=== PATIENT | male | born 1995 | race African-American/Black ===

== ENCOUNTER 2019-09-04 13:47 | Emergency (ER) | payer MEDICAID, OTHER ==
[~2019-09-04] VITALS: Ht 175.3 cm; Wt 108.9 kg
[~2019-09-04 13:47] MED LIST: FELBATOL600 MG PO
[2019-09-04] MEDS ORDERED: ONFI20 MG PO (14:00)
--- NOTE | 2019-09-04 14:20 | NUR ---
ED Nurse Note:pt. was BIBA with seizures, pt. is A/Ox3 , blood and urine sent to labs
[2019-09-04 14:22] LABS: EOSINOPHILS % (AUTO) 1.5 % (0.0-3.0); HEMATOCRIT 44.2 % (42.0-52.0); HEMOGLOBIN 14.5 G/DL (14.2-18.0); LYMPHOCYTES % (AUTO) 19.4 % (20.0-45.0); MEAN CORPUSCULAR VOLUME 90 FL (80-99); MONOCYTES % (AUTO) 9.7 % (1.0-10.0); NEUTROPHILS % (AUTO) 67.4 % (45.0-75.0); PLATELET COUNT 260 K/UL (150-450); RED BLOOD COUNT 4.92 M/UL (4.70-6.10); RED CELL DISTRIBUTION WIDTH 13.2 % (11.6-14.8); WHITE BLOOD COUNT 5.5 K/UL (4.8-10.8)
[2019-09-04 14:32] VITALS: BP 140/80
[2019-09-04 14:35] LABS: ANION GAP 15 mmol/L (5-15); BLOOD UREA NITROGEN 9 mg/dL (7-18); CALCIUM 9.1 MG/DL (8.5-10.1); CARBON DIOXIDE 23 MMOL/L (21-32); CHLORIDE 107 MMOL/L (98-107); CREATININE 1.1 MG/DL (0.55-1.30); POTASSIUM 4.7 MMOL/L (3.5-5.1); SODIUM 145 MMOL/L (136-145)
--- NOTE | 2019-09-04 14:35 | NUR ---
ED Nurse Note:pt. had CT scan done, IV meds and fluids given
[2019-09-04 14:40] LABS: ALANINE AMINOTRANSFERASE 60 U/L (12-78); ALKALINE PHOSPHATASE 81 U/L (46-116); ASPARTATE AMINO TRANSFERASE 39 U/L (15-37); BILIRUBIN,TOTAL 0.3 MG/DL (0.2-1.0)
--- NOTE | 2019-09-04 14:48 | Diagnostic Imaging Report ---
Indication: Headache Technique: Contiguous 5 mm thick transaxial imaging of the head obtained in a Siemens Sensation [address] scanner. Soft tissue and bone windows generated. Automatic Exposure Control was utilized. Total Dose length Product (DLP): 1018.8mGycm CT Dose Index Volume (CTDIvol): 53.4 mGy Comparison: none Findings: The size and configuration of the cortical sulci, basal cisterns, and ventricles are within normal limits for age. There is no mass effect, midline shift, or edema identified. There is no evidence of acute hemorrhage or abnormal intra-axial or extra-axial fluid collections. The bones and soft tissues are unremarkable. Impression: No mass effect, edema or acute bleed. The CT scanner at [facility] is accredited by the [employer] and the scans are performed using dose optimization techniques as appropriate to a performed exam including Automatic Exposure control.
--- NOTE | 2019-09-04 14:49 | Diagnostic Imaging Report ---
Indication: Chest pain Comparison: 08/22/2006 A single view chest radiograph was obtained. Findings: Cardiomediastinal appearance is within normal limits for age and accounting for low lung volumes. The lungs are clear. Pulmonary vascularity is appropriate. The diaphragmatic contour is smooth and costophrenic angles are sharp. No pleural effusions are identified. The bones are unremarkable. Impression: No acute findings
[2019-09-04] MEDS ORDERED: CYPROHEPTADINE H4 MG PO (15:03)
[2019-09-04 16:24] VITALS: BP 116/46
--- NOTE | 2019-09-04 16:36 | Emergency Room Report ---
History of Present Illness General Chief Complaint: Seizure Source: EMS Present Illness HPI 23-year-old male with history of tonic-clonic seizures and epilepsy brought in by paramedics after having a seizure episode while at work center earlier today. Patient was dancing in February and had a seizure activity. Mom arrives later who happens to be with patient. Mom reports that since patient had the flu shot 1 week ago has been having fever free seizure episodes. Patient has also lost continence during 1 of them. Patient has a neurologist who sees him regularly, and 2 different seizure medication. Patient recently started a new sleeping pill. Next appointment with neurologist is in 1 week from now. Also has an EEG appointment for first week of September. Denies any head injury. Appears to be stable with stable vital signs. Denies any drug use and alcohol intake. Denies chest pain, shortness of breath, palpitation, and no neurological or vascular deficits noted. Allergies: Coded Allergies: No Known Allergies (Unverified , 09/14/12) Patient History Past Medical History: see triage record Past Surgical History: none Pertinent Family History: none Immunizations: UTD Reviewed Nursing Documentation: PMH: Agreed; PSxH: Agreed Nursing Documentation-PMH Hx Neurological Problems: Yes Hx Seizures: Yes Review of Systems All Other Systems: negative except mentioned in HPI Physical Exam Vital Signs Date Time Temp Pulse Resp B/P (MAP) Pulse Ox O2 Delivery O2 Flow Rate FiO2 09/04/19 13:48 98.8 130 19 140/80 (100) 98 Room Air Sp02 EP Interpretation: reviewed, normal General Appearance: mild distress Head: normocephalic, atraumatic Eyes: bilateral eye normal inspection, bilateral eye PERRL ENT: hearing grossly normal, normal pharynx, no angioedema, normal voice Neck: normal inspection, supple, thyroid normal, no bony tend Respiratory: chest non-tender, lungs clear, normal breath sounds, no rhonchi, no respiratory distress, no retraction, no wheezing, speaking full sentences Cardiovascular #1: regular rate, rhythm, no edema, no murmur, normal capillary refill Gastrointestinal: normal bowel sounds, non tender, soft, non-distended, no guarding, no rebound Rectal: deferred Genitourinary: no CVA tenderness Musculoskeletal: back normal, no calf tenderness Neurologic: alert, motor strength/tone normal, oriented, oriented x3, sensory intact, responsive, speech normal Psychiatric: judgement/insight normal, memory normal, mood/affect normal, no suicidal/homicidal ideation Skin: no rash Lymphatic: no adenopathy Medical Decision Making PA Attestation All diagnoses and treatment plans were reviewed and discussed with my supervising physician Dr. Lincoln Diagnostic Impression: Primary Impression: Seizure disorder ER Course 23-year-old male with history of tonic-clonic seizures and epilepsy brought in by paramedics after having a seizure episode while at work center earlier today. Patient was dancing in February and had a seizure activity. Mom arrives later who happens to be with patient. Mom reports that since patient had the flu shot 1 week ago has been having fever free seizure episodes. Patient has also lost continence during 1 of them. Patient has a neurologist who sees him regularly, and 2 different seizure medication. Patient recently started a new sleeping pill. Next appointment with neurologist is in 1 week from now. Also has an EEG appointment for first week of September. Denies any head injury. Appears to be stable with stable vital signs. Denies any drug use and alcohol intake. Denies chest pain, shortness of breath, palpitation, and no neurological or vascular deficits noted. Ddx considered but are not limited to: cerebral hematoma, concussion, skull fracture, head contusion, seizure disorder, epilepsy, uncontrolled seizure Vital signs: are WNL, pt. is afebrile H&PE are most consistent with: Seizure disorder ORDERS: head CT no contrast, seizure order set, ED INTERVENTIONS: NS bolus DISCHARGE: At this time pt. is stable for d/c to home. Will provide printed patient care instructions, and any necessary prescriptions. Care plan and follow up instructions have been discussed with the patient prior to discharge. Patient is trying to contact neurologist and unable to contact with her due to clinic closing at 1 PM on Fridays I consulted with mom and gave her the option of having the patient be hospitalized or follow-up with neurologist as there needs to be adjustment to seizure medication. Also advised to have patient have a sooner EEG and appointment with neurologist mom agrees and wants to take patient home. Advised mom to bring patient back to the emergency room if more seizure activity and uncontrolled. Mom agrees with the above treatment EKG Diagnostic Results Rate: normal Rhythm: NSR ST Segments: no acute changes Other Impression No acute ST changes Chest X-Ray Diagnostic Results Chest X-Ray Diagnostic Results : Chest X-Ray Ordered: Yes # of Views/Limited/Complete: 1 View Indication: Other EP Interpretation: Yes PA Xray: Interpretation reviewed, by supervising MD, and agrees with findings. Interpretation: no consolidation, no effusion, no pneumothorax Impression: No acute disease Electronically Signed by: Niesha Trevino PA-C CT/MRI/US Diagnostic Results CT/MRI/US Diagnostic Results : Imaging Test Ordered: Head CT no contrast Impression No intracranial bleed, no skull fracture Last Vital Signs Date Time Temp Pulse Resp B/P (MAP) Pulse Ox O2 Delivery O2 Flow Rate FiO2 09/04/19 16:24 98.8 74 20 116/46 98 Room Air Disposition: HOME, SELF-CARE Condition: Stable Referrals: NON PHYSICIAN (PCP) Patient Instructions: Seizure, Adult Additional Instructions: Follow-up with your neurologist, try to get a sooner appointment for EEG. If more seizure activity bring the patient back to the emergency department. Monitor patient at all times. If worsening symptoms return to the emergency room. Niesha Newberry Sep 04, 2019 16:36
--- NOTE | 2019-09-04 16:45 | NUR ---
ER DISCHARGE NOTE: Patient is cleared to be discharged per ERMD, pt is aox4, on room air, with stable vital signs. pt was given dc and prescription instructions, pt was able to verbalize understanding, pt id band and iv site removed without complications. pt is able to ambulate with steady gait. pt took all belongings.
[2019-09-04 16:48] VITALS: BP 116/46
== END 2019-09-04 16:52 | disposition home or self-care (01) ==
LOC: EDBD 13:47 → EMR 14:22
DX: G40.909 Epilepsy, unspecified, not intractable, without status epilepticus (principal)
CPT/HCPCS: 36415; 70450; 71045; 80053; 80156; 80185; 80307; 85025; 93005; 96361; 96374; 96375; G0480; J2405; J7030; S0028; Z7502; 99284